=== PATIENT | female | born 1990 | race African-American/Black ===

== ENCOUNTER 2018-09-06 13:39 | Emergency (ER) | payer MEDICAID ==
[~2018-09-06] VITALS: Ht 172.7 cm; Wt 75.0 kg
[2018-09-06 13:47] VITALS: BP 127/86
== END 2018-09-06 16:31 | disposition left against medical advice (07) ==
LOC: ER 13:39
DX: Z53.21 Procedure and treatment not carried out due to patient leaving prior to being seen by health care provider (principal)

== ENCOUNTER 2020-12-28 04:45 | Inpatient (IN) | payer MEDICAID ==
[~2020-12-28] VITALS: Ht 162.6 cm; Wt 89.4 kg
[2020-12-28] MEDS ORDERED: MISOPROSTOL 100MCG TABLET VG SCH (05:15)
[2020-12-28] MEDS ORDERED: DEXT 5%/LR + PITOCIN 20UNITS/L 1,000 ML IV SCH ×2 (05:15→22:00)
[2020-12-28] MEDS ORDERED: BUTORPHANOL TARTRATE 2 MG/ML VIAL IV PRN (05:15)
[2020-12-28] MEDS ORDERED: LIDOCAINE HCL 1% 20ML VIAL (Pyxis) INJ INFIL SCH (05:15)
[2020-12-28] MEDS: LACTATED RINGERS 1,000 ML IV SCH ×2 (05:36→06:49)
[2020-12-28 06:35] LABS: BASOPHILS % 0.1 % (0.0-2.0); HEMATOCRIT. 33.5 % (36.0-48.0); HEMOGLOBIN. 11.4 g/dL (12.0-16.0); LYMPHOCYTES % 8.5 % (20.0-50.0); MEAN CORPUSCULAR HEMOGLOBIN 26.2 pg (28.0-32.0); MONOCYTES % 4.8 % (2.0-8.0); NEUTROPHILS % 86.6 % (40.0-76.0); PLATELET 337 x1000/uL (130-400); RED BLOOD CELL COUNT 4.34 mill/uL (4.2-5.4); RED CELL DISTRIBUTION WIDTH 14.5 % (11.6-14.6)
[2020-12-28] MEDS ORDERED: PREN-176 PO (06:35)
[2020-12-28] MEDS ORDERED: LORA5TAB8 PO (06:35)
[2020-12-28] MEDS ORDERED: FLUO20CA33 MT (06:35)
[2020-12-28 06:56] LABS: INR 0.9; PARTIAL THROMBOPLASTIN TIME 25.1 sec (23.4-31.0)
[2020-12-28 07:29] LABS: HEPATITIS B SURFACE ANTIGEN NEGATIVE
[2020-12-28] MEDS ORDERED: FENTANYL CITRATE/PF 50MCG/ML 2ML VIAL ONE ×2 (07:38→15:29)
[2020-12-28] MEDS ORDERED: ROPIVACAINE HCL/PF EPIDURAL 200 ML EPI ONE (07:39)
[2020-12-28] MEDS ORDERED: DEXT 5%/LACTATED RINGERS 1,000 ML IV ONE (08:10)
[2020-12-28 09:41] LABS: CLARITY URINE CLEAR (CLEAR); COLOR URINE YELLOW (YELLOW); KETONES URINE 2+ (NEGATIVE); LEUKOCYTE ESTERASE URINE NEGATIVE (NEGATIVE); NITRITE URINE NEGATIVE (NEGATIVE); OCCULT BLOOD URINE NEGATIVE (NEGATIVE); PH URINE 5.5 (4.5-8.0); PROTEIN URINE TRACE (NEGATIVE); SPECIFIC GRAVITY URINE 1.012 (1.005-1.030); UROBILINOGEN URINE 0.2 E.U./dL (0.2-1.0)
[2020-12-28 10:07] LABS: *AMPHETAMINES SCREEN URINE NEGATIVE (NEGATIVE); *BARBITURATES SCREEN URINE NEGATIVE (NEGATIVE); *BENZODIAZEPINES SCREEN URINE NEGATIVE (NEGATIVE); *COCAINE SCREEN URINE NEGATIVE (NEGATIVE); METHADONE URINE SCREEN NEGATIVE (NEGATIVE); OPIATES URINE SCREEN NEGATIVE (NEGATIVE)
[2020-12-28 10:08] LABS: CANNABINOID URINE SCREEN NEGATIVE (NEGATIVE); PHENCYCLIDINE URINE SCREEN NEGATIVE (NEGATIVE)
[2020-12-28] MEDS ORDERED: ROPIVACAINE HCL/PF EPIDURAL 200 ML EPI SCH (10:30)
[2020-12-28] MEDS ORDERED: MISOPROSTOL 100MCG TABLET ONE (20:58)
[2020-12-28] MEDS ORDERED: LIDOCAINE HCL 1% 20ML VIAL (Pyxis) INJ ONE (20:59)
[2020-12-28] MEDS ORDERED: MISOPROSTOL 200MCG TABLET PO NR (21:30)
[2020-12-28] MEDS ORDERED: KETOROLAC 30MG/ML VIAL IM NR (21:30)
[2020-12-28] MEDS ORDERED: KETOROLAC 60MG/2ML VIAL IM ONE (22:00)
[2020-12-28] MEDS ORDERED: HEMORRHOIDAL SUPP PR PRN (22:00)
[2020-12-28] MEDS ORDERED: GLYCERIN/WITCH HAZEL LEAF MEDICATED PAD TOP PRN (22:00)
[2020-12-28] MEDS ORDERED: IBUPROFEN 400MG TABLET PO PRN (22:00)
[2020-12-28] MEDS ORDERED: BISACODYL 10MG SUPP PR PRN (22:00)
[2020-12-28] MEDS ORDERED: LANOLIN OINT 7GM TUBE TOP PRN (22:00)
[2020-12-28] MEDS: ACETAMINOPHEN WITH CODEINE 300/30MG TABLET PO PRN (22:12)
[2020-12-29] MEDS: BENZOCAINE/LANOLIN/ALOE VERA SPRAY TOP PRN ×3 (00:10→17:57)
[2020-12-29] MEDS: IBUPROFEN 800MG TABLET PO PRN ×3 (00:13→17:57)
[2020-12-29 04:23] LABS: BASOPHILS % 0.3 % (0.0-2.0); HEMOGLOBIN. 9.5 g/dL (12.0-16.0); LYMPHOCYTES % 11.8 % (20.0-50.0); MEAN CORPUSCULAR HEMOGLOBIN 26.5 pg (28.0-32.0); MEAN CORPUSCULAR VOLUME 78.2 fL (81.0-99.0); MEAN PLATELET VOLUME 7.6 fl (7.4-10.4); MONOCYTES % 7.4 % (2.0-8.0); NEUTROPHILS % 80.5 % (40.0-76.0); PLATELET 280 x1000/uL (130-400); RED BLOOD CELL COUNT 3.58 mill/uL (4.2-5.4); RED CELL DISTRIBUTION WIDTH 14.9 % (11.6-14.6)
[2020-12-29] MEDS: ACETAMINOPHEN WITH CODEINE 300/30MG TABLET PO PRN (04:31)
[2020-12-29 08:00] VITALS: BP 112/74
[2020-12-29] MEDS: PRENATAL VIT/FE FUMARATE/FA TABLET PO SCH (09:15)
[2020-12-29] MEDS: FERROUS SULFATE 325MG TABLET PO SCH ×3 (09:16→17:56)
[2020-12-29] MEDS: SIMETHICONE 80MG TABLET CHEW PO SCH ×3 (09:16→17:56)
[2020-12-29 15:00] VITALS: BP 103/60
[2020-12-29 20:00] VITALS: BP 117/80
[2020-12-29] MEDS ORDERED: DOCUSATE SODIUM 100MG CAPSULE PO SCH (21:00)
[2020-12-30] VITALS: BP 115/76
[2020-12-30] MEDS: IBUPROFEN 800MG TABLET PO PRN ×2 (00:08→08:10)
[2020-12-30] MEDS: SIMETHICONE 80MG TABLET CHEW PO SCH ×2 (00:08→08:10)
[2020-12-30] MEDS: PRENATAL VIT/FE FUMARATE/FA TABLET PO SCH (08:09)
[2020-12-30] MEDS: FERROUS SULFATE 325MG TABLET PO SCH (08:09)
[2020-12-30 08:26] LABS: BASOPHILS % 0.4 % (0.0-2.0); EOSINOPHILS % 0.7 % (0.0-5.0); HEMATOCRIT. 27.3 % (36.0-48.0); HEMOGLOBIN. 9.2 g/dL (12.0-16.0); LYMPHOCYTES % 32.1 % (20.0-50.0); MEAN CORPUSCULAR HEMOGLOBIN 26.8 pg (28.0-32.0); MEAN CORPUSCULAR VOLUME 79.2 fL (81.0-99.0); MEAN PLATELET VOLUME 7.6 fl (7.4-10.4); MONOCYTES % 7.4 % (2.0-8.0); NEUTROPHILS % 59.4 % (40.0-76.0); PLATELET 291 x1000/uL (130-400); RED BLOOD CELL COUNT 3.44 mill/uL (4.2-5.4); RED CELL DISTRIBUTION WIDTH 15.2 % (11.6-14.6)
[2020-12-30 08:51] VITALS: BP 126/84
== END 2020-12-30 11:15 | disposition home or self-care (01) | DRG 560 ==
LOC: OBSVTOIN 04:45 → 8 EST LDRP 04:45 → 8EST 22:50
PROVIDERS: ADMIT Obstetrics & Gynecology; ATTEND Obstetrics & Gynecology
PROC: 10E0XZZ Delivery of Products of Conception, External Approach (ICD-10-PCS; principal; 2020-12-28)
PROC: 0W8NXZZ Division of Female Perineum, External Approach (ICD-10-PCS; 2020-12-28)
PROC: 3E0R3BZ Introduction of Anesthetic Agent into Spinal Canal, Percutaneous Approach (ICD-10-PCS; 2020-12-28)
PROC: 00HU33Z Insertion of Infusion Device into Spinal Canal, Percutaneous Approach (ICD-10-PCS; 2020-12-28)
DX: O77.0 Labor and delivery complicated by meconium in amniotic fluid (principal); Z37.0 Single live birth; O99.344 Other mental disorders complicating childbirth; D64.9 Anemia, unspecified; O75.89 Other specified complications of labor and delivery; Z20.822 Contact with and (suspected) exposure to COVID-19; O90.81 Anemia of the puerperium; F32.9 Major depressive disorder, single episode, unspecified; J30.2 Other seasonal allergic rhinitis; Z3A.39 39 weeks gestation of pregnancy
CPT/HCPCS: 36415; 80305; 81003; 85025; 86592; 86703; 86762; 86850; 86900; 87340; 87426; 99281; G0378; J0595; J1885; J2590; J2795; J3010; J3490; J7120